=== PATIENT | female | born 1995 | race Caucasian/White ===

== ENCOUNTER → 2020-02-01 | Outpatient (CLI) | payer OTHER ==
[2020-02-01 16:26] LABS: BASO % 0.4 % (0.0-1.0); EOS # 0.1 10^3/uL (0.0-0.5); HEMATOCRIT 36.4 % (36.0-47.0); HEMOGLOBIN 11.8 g/dl (12.0-15.5); LYMPH # 2.7 10^3/uL (1.5-5.0); LYMPH % 25.1 % (24.0-44.0); MEAN CORPUSCULAR HEMOGLOBIN 30.5 pg (27.0-33.0); MEAN CORPUSCULAR HGB CONC 32.4 g/dl (32.0-36.5); MEAN CORPUSCULAR VOLUME 94.1 fl (80.0-96.0); MONO # 0.7 10^3/uL (0.0-0.8); NEUTROPHILS # 7.2 10^3/uL (1.5-8.5); NEUTROPHILS % 67.1 % (36.0-66.0); PLATELET COUNT, AUTOMATED 273 10^3/uL (150-450); RED BLOOD COUNT 3.87 10^6/uL (4.00-5.40); WHITE BLOOD COUNT 10.8 10^3/uL (4.0-10.0)
[2020-02-04 09:06] LABS: HEPATITIS C VIRUS ABY INDEX 0.1 INDEX (<0.8)
[2020-02-04 12:30] LABS: HIV 1&2 SCREEN CENTAUR NEGATIVE (NEGATIVE)
== END ==
LOC: M PLALAB 13:37
PROVIDERS: ATTEND Advanced Practice Midwife
DX: Z34.81 Encounter for supervision of other normal pregnancy, first trimester (principal); Z3A.00 Weeks of gestation of pregnancy not specified

== ENCOUNTER → 2020-04-18 | Outpatient (CLI) | payer OTHER ==
--- NOTE | 2020-04-18 15:21 | REP ---
INDICATION: ANATOMY. COMPARISON: None. TECHNIQUE: Real-time sonographic evaluation of the gravid uterus performed. FINDINGS: Estimated gestational age is19 weeks 6 days, EDC 09/06/2020. Today's measurements indicate appropriate growth. Presentation: Transverse head maternal right side. Placenta posterior, grade 0, without evidence of placenta previa. Placental cord insertion is not visualized. heart rate is recorded at 146 beats per minute. Amniotic fluid is subjectively normal. Closed cervical length is measured at 3.1 cm. Biometry chart: BPD: 48 mm, 20 weeks 3 days, 63rd percentile. HC: 172 mm, 19 weeks 5 days, 46th percentile AC: 144 mm, 19 weeks 5 days, 47th percentile Femur length: 31 mm, 19 weeks 5 days, 46th percentile HC to AC ratio: 1.19, normal range 1.06-1.25. Estimated weight: 312g, 39th percentile. anatomy: Cranium: Grossly normal Lateral Ventricles/Choroid Plexus: Grossly normal Posterior Fossa/Cerebellum: Grossly normal Nose/lips/profile: Grossly normal Four chamber heart: Grossly normal Right ventricular outflow tract: Grossly normal Left ventricular outflow tract: Grossly normal Left-sided stomach: Grossly normal Kidneys: Grossly normal Bladder: Grossly normal Cord Insertion: Grossly normal 3 vessel cord: Grossly normal Spine: Grossly normal IMPRESSION: Viable single intrauterine gestation as above. <Electronically signed by Wesley Knox > 04/18/20 [id number]
== END ==
LOC: M WHC 13:33
PROVIDERS: ATTEND Advanced Practice Midwife
DX: Z34.82 Encounter for supervision of other normal pregnancy, second trimester (principal)

== ENCOUNTER → 2020-06-04 | Outpatient (REF) | payer OTHER | LOC: M PLALAB 16:23 | PROVIDERS: ATTEND Obstetrics & Gynecology | DX: Z34.92 Encounter for supervision of normal pregnancy, unspecified, second trimester (principal); Z3A.26 26 weeks gestation of pregnancy; Z53.9 Procedure and treatment not carried out, unspecified reason ==

== ENCOUNTER → 2020-06-20 | Outpatient (REF) | payer OTHER ==
[2020-06-20 15:54] LABS: HEMATOCRIT 37.7 % (36.0-47.0); HEMOGLOBIN 11.9 g/dl (12.0-15.5); MEAN CORPUSCULAR HEMOGLOBIN 29.8 pg (27.0-33.0); MEAN CORPUSCULAR HGB CONC 31.6 g/dl (32.0-36.5); MEAN CORPUSCULAR VOLUME 94.5 fl (80.0-96.0); PLATELET COUNT, AUTOMATED 289 10^3/uL (150-450); RED BLOOD COUNT 3.99 10^6/uL (4.00-5.40)
== END ==
LOC: M PLALAB 12:45
PROVIDERS: ATTEND Obstetrics & Gynecology
DX: Z3A.26 26 weeks gestation of pregnancy (principal)

== ENCOUNTER 2020-07-02 22:44 | Outpatient (CLI) | payer OTHER ==
[~2020-07-02] VITALS: Ht 154.9 cm; Wt 90.1 kg
[2020-07-02] MEDS ORDERED: MAGNESIUM *L&D* 4GM/100ML BAG (40MG/ML) IV ONE (23:10)
[2020-07-02] MEDS ORDERED: MAG Sulf (OBGYN) 20GM/500ML 20,000 MG in IV 1 EA IV SCH (23:10)
[2020-07-02] MEDS ORDERED: LR 1,000 ML IV SCH (23:10)
[2020-07-02] MEDS ORDERED: AZITHROMYCIN 250MG TABLET PO ONE (23:10)
[2020-07-02] MEDS ORDERED: VANCOMYCIN HCL 750 MG, VIAL MATE ADAPTER 1 EACH in NS 250 ML IV SCH (23:30)
[2020-07-02] MEDS ORDERED: BETAMETHASONE SOLUSPAN 6MG/ML 5ML VIAL (J0702 PER 3MG) IM SCH (23:30)
--- NOTE | 2020-07-02 23:59 | IPNPDOC ---
Text Note Date of Service The patient was seen on 07/02/20. NOTE Subjective: Catie is a 24-year-old female who is a at 30.4 weeks gestation with an JADEN of 09/06/20 based on her first trimester ultrasound. She initiated care in her first trimester with [facility]. Her has been complicated by a +COVID 19 infection 05/02/20. Her symptoms remained mild and she was encouraged to take ASA 81 mg. She reports today that she never started taking it. She presents to L&D with complaints of leaking clear fluid that started at 2145. She does reports some cramping. Reports active movement. Denies bleeding. Allergies: PCN-anaphylaxis PMHx: asthma as a child Surgical Hx: wisdom teeth extraction FHx: HTN: mother and grandmother Social Hx: , not a smoker, no history of STD, denies history of drug or alcohol use. Objective: FHR: 140, moderate variability, 15x15 accelerations, variable decelerations when she initially came into department that resolved. Contractions: 2-5 minutes that spaced out. Bedside ultrasound: cephalic presentation (Occipital posterior), MIKE < 5cm Grossly ruptured to large amount of clear fluid noted leaking down legs and on floor. Scant amount of bloody fluid noted on towel. SCE: 2-3/80/-2, anterior, scant show General: alert and oriented. Speech is clear. Respiratory: Regular rate and rhythm without use of accessory muscles Abdomen: gravid, non-tender to palpation, soft to palpation. Extremities: no edema bilaterally Assessment: IUP at 30.4 weeks gestation, premature rupture of membranes, GBS unknown Plan: Plan of care collaborated with Dr. Lau. GBS obtained. IV started. Azithromycin 1 gram PO now Vancomycin 20mg /kg every 8 hours (pharmacy dispensed 1500 mg) Betamethasone 12 mg IM now and again in 24 hours Mag sulfate 4 gram loading dose now followed by 2 grams per hour LR at 75 cc/hr Rapid COVID test ordered. Nifedipine 20 mg PO given for tocolysis. Catheter placed per patient's request. [facility] to be notified for transport once patient is stable. Talked to Dr. Trevino at [facility] and he accepts transport. No cervical change noted 5 minutes prior to leaving hospital. ROHIT SHOEMAKER CNM Jul 02, 2020 23:59
[2020-07-03] MEDS ORDERED: VANCOMYCIN HCL 750 MG, VIAL MATE ADAPTER 1 EACH in NS 250 ML IV SCH (00:30)
[2020-07-03] MEDS ORDERED: NIFEdipine 10 MG CAP PO STA (01:11)
== END 2020-07-03 01:32 | disposition other institution (70) ==
LOC: M LDO 22:44
PROVIDERS: ATTEND Advanced Practice Midwife
DX: O42.913 Preterm premature rupture of membranes, unspecified as to length of time between rupture and onset of labor, third trimester (principal); Z3A.30 30 weeks gestation of pregnancy
CPT/HCPCS: 59025; 87081; 96372; 96374; G0378; G0463; J0702; J3475; U0002

== ENCOUNTER → 2021-04-10 | Outpatient (REF) | payer OTHER | LOC: M SFHCLERA 16:03 | PROVIDERS: ATTEND Nurse Practitioner Family | DX: Z86.19 Personal history of other infectious and parasitic diseases (principal) ==